=== PATIENT | male | born 1960 | race Hispanic/Latino ===

== ENCOUNTER → 2019-05-12 | Day surgery (SDC) | payer OTHER ==
[~2019-05-12] MED LIST: CENTRUM SILVER1 EAC3; FENTANYL CITRATE/PF 100MCG/2 ML INJ ONE; FISH OIL; GLUCAGON FOR INJ 1 MG VIAL ONE; HYOSCYAMINE 0.125 MG TAB ONE; LIDOCAINE HCL 2% LOCAL INJ 5 ML SDV VIAL INJ ONE; LOSARTAN POTASS25 MG; LOVASTATIN40 MG; METFORMIN HCL500 MG PO; MIDAZOLAM HCL 2 MG/2 ML VIAL ONE; PROPOFOL IV EMULSION 10 MG/ML 20 ML VIAL ONE; PROPOFOL IV EMULSION 10 MG/ML 50 ML VIAL ONE; cinnamon
[2019-05-12 09:10] VITALS: BP 113/73
--- NOTE | 2019-05-12 11:09 | Operative Report ---
DATE OF PROCEDURE: 05/12/2019 SURGEON: Timothy Jeronimo MD PROCEDURE: Colonoscopy and polypectomy. INDICATIONS FOR COLONOSCOPY: Colorectal cancer screening. MEDICATIONS: The patient was done under MAC, please see anesthesiologist's note. PROCEDURE IN DETAIL: With the patient in left lateral decubitus position, a flexible fiberoptic Olympus colonoscope was inserted into the rectum and advanced all the way to the cecum. Minute polyp was removed in the cecum per the cold biopsy forceps. An approximately 1 cm sessile polypoid lesion with yellowish over hue suspicious for lipoma, was biopsied and one polyp was removed per hot biopsy forceps from the proximal transverse colon. The rest of the transverse and descending appeared to be within normal limits. A large approximately 3 cm polypoid mass was noted in the distal sigmoid colon and that was removed per piecemeal electrocautery and polypectomy site was hemoclipped x2. The rectum appeared to be within normal limits. The scope was then retroflexed into the distal rectum and small internal hemorrhoids were noted, none of which was actively bleeding. The scope was then straightened out, it was subsequently withdrawn, and the patient tolerated the procedure well. IMPRESSION: 1. Cecal polyp, removed per cold biopsy forceps. 2. Rule out lipoma, mid ascending colon. 3. Minute polyp, proximal transverse colon, hot biopsied. 4. Large approximately 3 cm polypoid mass, distal sigmoid colon, removed per piecemeal electrocautery and then polypectomy site hemoclipped x2. 5. Internal hemorrhoids, none actively bleeding. PLAN: Follow up histology. Initiate high-fiber, low-fat diet. Initiate high-fiber supplement. Timing of followup colonoscopy pending pathology report. If the lesion was benign, then followup colonoscopy will be in one year. Timothy Jeronimo MD [facility] [place] /[id number] cc: Rachel Eduardo MD
== END | disposition home or self-care (01) ==
LOC: OR 06:16
PROVIDERS: ATTEND Internal Medicine Gastroenterology
DX: Z12.11 Encounter for screening for malignant neoplasm of colon (principal); D12.5 Benign neoplasm of sigmoid colon; K63.5 Polyp of colon; K64.8 Other hemorrhoids; Z01.810 Encounter for preprocedural cardiovascular examination; E11.9 Type 2 diabetes mellitus without complications; I10 Essential (primary) hypertension; E78.5 Hyperlipidemia, unspecified; Z79.84 Long term (current) use of oral hypoglycemic drugs
CPT/HCPCS: 36415; 45380; 45384; 45385; 82948; 93005; J1610; J2001; J2250; J3010